=== PATIENT | male | born 1980 | race Caucasian/White ===

== ENCOUNTER 2023-06-21 17:01 | Emergency (ER) | payer SELFPAY | END 2023-06-21 19:05 | disposition home or self-care (01) | LOC: JP.ED 17:01 | DX: S43.101A Unspecified dislocation of right acromioclavicular joint, initial encounter (principal); V86.95XA Unspecified occupant of 3- or 4- wheeled all-terrain vehicle (ATV) injured in nontraffic accident, initial encounter | CPT/HCPCS: 73030-26-RT; 73030-RT; 99284 ==